=== PATIENT | male | born 1955 | race Caucasian/White ===

== ENCOUNTER 2018-09-02 08:26 | Emergency (ER) | payer SELFPAY ==
[2018-09-02] MEDS ORDERED: NITROGLYCERIN 0.4 MG TAB.SUBL SL ONE ×3 (08:46→10:00)
[2018-09-02] MEDS ORDERED: ASPIRIN 81 MG CHEW TAB PO ONE (08:46)
--- NOTE | 2018-09-02 08:50 | ED Physician Documentation ---
Chest Pain - HISTORIAN Historian: patient - HPI Stated Complaint: chest pain Chief Complaint: Chest Pain Additional Information: Patient presents to ED with chest pressure, shortness of breath since 0730 this morning. Patient rates his chest pressure/pain 5/10 with radiation to left jaw. He has a history of HTN and take lisinopril. BP on arrival 198/109. He has a 50 pack year smoking history with cessation on Jul 23, 2018. Onset: hours (1) Timing: sudden onset Duration: constant Last known Well Date: 09/02/18 Last Known Well Time: 07:30 Last known Well Code/Unknown Code: Known Context: activity Severity: moderate Quality: pressure Chest Pain Radiation: jaw (left) Chest Pain Signs/Symptoms: denies: nausea, vomiting Worsened By: exertion Relieved By: nothing - ROS CONST: none MS/LYMPH: none. denies: ankle swelling GI/: denies: vomiting, nausea EYES/ENT: none SKIN/ENDO: none NEURO/PSYCH: none - PAST HX [place] risk factors: hypertension DVT/PE Risk Factors: none TAD/AAA risk factors: none Neuro deficit: none GI disease: none Lung disease: COPD Surgeries/Procedures: none Allergies/Adverse Reactions: Allergies Allergy/AdvReac Type Severity Reaction Status Date / Time No Known Allergies Allergy Verified 09/02/18 09:00 - SOCIAL HX Smoking History: non-smoker (50 pack year history) Alcohol Use: none Drug Use: none - FAMILY HX Family HX: none - REVIEWED ASSESSMENTS Nursing Assessment Reviewed: Yes Vitals Reviewed: Yes Progress - Progress Progress: 0920 Patient states chest pressure is worse, now radiating to his left arm. Patient skin is more mccullough. [id number] Discussed with zehra Pagan at [facility] for transfer. 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 ED Results Lab/Radiology - Orders Orders: ED Orders Category Date Time Status Place IV Lock 1T Care 09/02/18 08:37 Active CHEST 1VIEW [RAD] Stat Exams 09/02/18 Ordered CBC/PLATELET/DIFF Routine Lab 09/02/18 Ordered CMP Routine Lab 09/02/18 Ordered NT-proBNP Stat Lab 09/02/18 Ordered TROPONIN I (cTnI) Stat Lab 09/02/18 Ordered Aspirin Med 09/02/18 08:46 Once 324 mg PO NOW ONE Nitroglycerin [Nitroquick] Med 09/02/18 08:46 Once 0.4 mg SL NOW ONE Oxygen Daily Oxygen 09/02/18 09:00 Ordered EKG WITH COMPARISON Stat Ther 09/02/18 Ordered Chest Pain Physical Exam - EXAM General Appearance: no acute distress, alert EENT: BANDAR Neck: no carotid bruit Respiratory: no resp. distress, nml breath sounds CVS: reg. rate & rhythm, no murmur Abdomen: soft, normal bowel sounds Skin: warm/dry, normal color Extremities: non-tender, normal range of motion Neuro: oriented X3, CN's nml as tested Discharge Clincal Impression: STEMI (ST elevation myocardial infarction) Qualifiers: Involved coronary artery: other inferior wall coronary artery Qualified Code(s): I21.19 - ST elevation (STEMI) myocardial infarction involving other coronary artery of inferior wall Condition: Fair Disposition: XFER SHT-TRM HOSP Decision to Admit: [id number] Date of Decison to Admit: 09/02/18 Decision Time: 09:55
[2018-09-02 09:05] LABS: BASOPHILS % 0.8 (0.0-1.5); EOSINOPHILS % 1.9 % (0.0-6.8); MEAN CORPUSCULAR HEMOGLOBIN 31.8 pg (28.0-34.0); MONOCYTES % 8.1 % (0.0-11.0); NEUTROPHILS # 4.3 # k/uL (1.4-7.7)
[2018-09-02] MEDS ORDERED: HEPARIN SODIUM 5000 UNIT/1 ML IV ONE (09:29)
[2018-09-02] MEDS ORDERED: MORPHINE SULFATE 10 MG/ML VIAL IVP ONE (09:32)
[2018-09-02] MEDS ORDERED: HEPARIN SODIUM,PORCINE/D5W 20,000 UNIT/500 ML BAG IV ONE (09:32)
[2018-09-02 09:34] LABS: eGFR (Non-African) > 60
[2018-09-02 10:31] VITALS: BP 126/68
--- NOTE | 2018-09-03 04:22 | Diagnostic Imaging Report ---
ESAU KAPLAN [facility] [id number] [facility] [address] [place], [place]. [address] Report Submission Date: Sep 02, 2018 9:33:33 AM [employer] Patient Study Name: PALOMA BOOGIE Date: Sep 02, 2018 9:04:42 AM [employer] Modality Type: DX Gender: M Description: CHEST 2VIEW : 53 Institution: [facility] Physician: ESAU KAPLAN Examination: PA and lateral chest. History: Evaluate lung bauer. CHEST PAIN TODAY, SOA Comparison exam: None provided. Findings: PA and lateral views of the chest demonstrates a normal cardiac and mediastinal silhouette. Mildly tortuous aorta. No focal infiltrate. No blunting of the costophrenic margins. Right lower lung nodular density/granuloma. Osseous structures are appropriate for age. Impression: No acute appearing pulmonary process. Right lower lung nodular density/granuloma - correlation with older studies recommended to establish stability. Electronically signed on Sep 02, 2018 9:33:33 AM [employer] by: Adiel MCKEON
== END 2018-09-02 10:11 | disposition short-term general hospital (02) ==
LOC: ED 08:26
DX: I21.19 ST elevation (STEMI) myocardial infarction involving other coronary artery of inferior wall (principal); Z87.891 Personal history of nicotine dependence
CPT/HCPCS: 36415; 71046; 80053; 83880; 84484; 85025; 93005; 96374; 96375; 99285; J1644; J2270; S1016